=== PATIENT | male | born 1970 | race African-American/Black ===

== ENCOUNTER 2021-02-28 01:28 | Inpatient (IN) | payer OTHER ==
[2021-02-28] MEDS ORDERED: LIDOCAINE 5% TOPICAL PATCH TP ONE (02:36)
[2021-02-28 02:42] VITALS: BMI 32.5
[2021-02-28 03:51] LABS: BASO % 0.6 % (0-2.0); EOS % 4.1 % (0-4.5); HEMATOCRIT 44.4 % (35.4-49); HEMOGLOBIN 14.7 GM/dL (11.7-16.9); LYMPH % 19.1 % (8-40); MCH 27.7 pg (25.7-33.7); MCHC 33.1 g/dl (32.0-35.9); MEAN CELL VOLUME 83.8 fl (80-96); MEAN PLT VOLUME 7.1 fl (7.5-11.1); MONO % 11.1 % (3.8-10.2); NEUT % 65.1 % (42.8-82.8); PLATELET COUNT 186 10^3/uL (134-434); RDW 14.6 % (11.9-15.9); WHITE BLOOD COUNT 4.7 K/mm3 (4.0-10.0)
[2021-02-28 04:11] LABS: CHLORIDE 102 mmol/L (98-107); SODIUM 138 mmol/L (136-145)
[2021-02-28 04:13] LABS: BLOOD UREA NITROGEN 20.7 mg/dL (7-18); CALCIUM 9.2 mg/dL (8.5-10.1)
[2021-02-28 04:14] LABS: ALBUMIN 3.7 g/dl (3.4-5.0); ANION GAP 6 MMOL/L (8-16); CO2 30 mmol/L (21-32); GLUCOSE,RANDOM 101 mg/dL (74-106); MAGNESIUM 2.3 mg/dL (1.8-2.4)
[2021-02-28 04:18] LABS: BILIRUBIN,TOTAL 0.7 mg/dL (0.2-1); CREATININE 1.5 mg/dL (0.55-1.3); SGOT/AST 25 U/L (15-37); SGPT/ALT 46 U/L (13-61); TOT PROT 8.1 g/dl (6.4-8.2)
[2021-02-28 04:19] LABS: ALK PHOS 46 U/L (45-117)
[2021-02-28] MEDS ORDERED: SODIUM CHLORIDE 0.9% 500 ML INFUS.BAG IV ONE (04:26)
[2021-02-28] MEDS ORDERED: DIPHTH,PERTUSS(ACELL),TET 0.5 ML DISP.SYRIN IM ONE ×2 (05:12→05:24)
[2021-02-28] MEDS ORDERED: ACETAMINOPHEN 325 MG TABLET (FP) PO ONE ×2 (05:13→21:11)
[2021-02-28] MEDS ORDERED: ACETAMINOPHEN 325 MG TABLET (FP) ONE (05:24)
[2021-02-28] MEDS ORDERED: SODIUM CHLORIDE 1,000 ML IV SCH (06:00)
[2021-02-28] MEDS ORDERED: HEPARIN NA (PORCINE) 5,000 UNITS/ML 1ML VIAL ONE (06:22)
[2021-02-28] MEDS: HEPARIN NA (PORCINE) 5,000 UNITS/ML 1ML VIAL SQ SCH ×3 (06:55→21:10)
[2021-02-28 09:32] LABS: URINE APPEARANCE CLEAR; URINE BILIRUBIN NEGATIVE (NEGATIVE); URINE COLOR YELLOW; URINE GLUCOSE (UA) NEGATIVE (NEGATIVE); URINE KETONE NEGATIVE (NEGATIVE); URINE LEUK ESTERASE NEGATIVE (NEGATIVE); URINE NITRITE NEGATIVE (NEGATIVE); URINE PROTEIN NEGATIVE (NEGATIVE); URINE UROBILINOGEN 0.2 mg/dL (0.2-1.0)
[2021-02-28 09:59] LABS: URINE BARBITURATES NEGATIVE (NEGATIVE); URINE BENZODIAZEPINES NEGATIVE (NEGATIVE)
[2021-02-28 10:01] LABS: COCAINE, UR NEGATIVE (NEGATIVE); METHADONE, UR NEGATIVE (NEGATIVE)
[2021-02-28 10:02] LABS: PHENCYCLIDINE,URINE NEGATIVE (NEGATIVE)
[2021-02-28 10:10] LABS: OPIATES, URI NEGATIVE (NEGATIVE)
[2021-02-28 10:22] LABS: URINE AMPHETAMINES NEGATIVE (NEGATIVE)
[2021-02-28 10:55] LABS: CHOLESTEROL 165 mg/dL (50-200)
[2021-02-28 10:56] LABS: TRIGLYCERIDES 101 mg/dL (0-150)
[2021-02-28 10:57] LABS: LDL CHOLESTEROL (ONLY SJRH) 97 mg/dL (5-100)
[2021-02-28 10:59] LABS: HDL CHOLESTEROL 47 mg/dL (40-60)
[2021-02-28] MEDS ORDERED: LIDOCAINE PATCH REMOVAL MC ONE (15:00)
[2021-03-01] MEDS: HEPARIN NA (PORCINE) 5,000 UNITS/ML 1ML VIAL SQ SCH (05:27)
[2021-03-01 06:44] VITALS: TEMP 98.2
[2021-03-01 09:49] LABS: CALCIUM 9.2 mg/dL (8.5-10.1)
[2021-03-01 09:51] LABS: BLOOD UREA NITROGEN 19.3 mg/dL (7-18)
[2021-03-01 09:54] LABS: CREATININE 1.4 mg/dL (0.55-1.3)
[2021-03-01 11:30] VITALS: BP 135/79; PULSE 71
== END 2021-03-01 13:45 | disposition home or self-care (01) | DRG 312 ==
LOC: EDBD 01:28 → JER 01:28 → JERBED 04:59 → OBSVTOIN 05:53 → J4S 11:36
PROVIDERS: ADMIT Internal Medicine
DX: R55 Syncope and collapse (principal); N17.9 Acute kidney failure, unspecified; R53.1 Weakness; R73.03 Prediabetes; E66.9 Obesity, unspecified; Z68.32 Body mass index [BMI] 32.0-32.9, adult; W18.39XA Other fall on same level, initial encounter; Y92.098 Other place in other non-institutional residence as the place of occurrence of the external cause
CPT/HCPCS: 36415; 70450-TC; 70551-TC; 71045-TC-FY; 76775-TC; 80048; 80053; 80061; 80307; 81003; 82550; 82553; 82570; 83036; 83735; 83880; 84100; 84436; 84443; 84484; 84540; 85025; 87086; 90715; 93005; 93010; 93880-TC; 97116-GP; 97161-GP; 99285-25; C9803; G0378; J1644; U0003; U0005

== ENCOUNTER 2022-02-10 07:31 | Day surgery (SDC) | payer OTHER ==
[2022-02-10 07:43] VITALS: BMI 27.8
[2022-02-10] MEDS ORDERED: SODIUM CHLORIDE 0.9% 500 ML INFUS.BAG IV ONE (08:34)
[2022-02-10] MEDS ORDERED: morphine CARPU-JECT 2 MG/1 ML DISP.SYRIN IVPUSH ONE (08:34)
[2022-02-10 10:49] LABS: BASO % 0.2 % (0-2.0); HEMATOCRIT 42.6 % (35.4-49); LYMPH % 4.2 % (8-40); MCH 27.5 pg (25.7-33.7); MCHC 32.8 g/dl (32.0-35.9); MEAN CELL VOLUME 83.8 fl (80-96); MEAN PLT VOLUME 7.7 fl (7.5-11.1); MONO % 7.8 % (3.8-10.2); NEUT % 87.8 % (42.8-82.8); PLATELET COUNT 200 10^3/uL (134-434); RBC 5.09 M/mm3 (4.00-5.60); RDW 14.1 % (11.9-15.9); WHITE BLOOD COUNT 11.2 K/mm3 (4.0-10.0)
[2022-02-10 11:08] LABS: ALBUMIN 4.2 g/dl (3.4-5.0); BLOOD UREA NITROGEN 17.3 mg/dL (7-18); CALCIUM 9.4 mg/dL (8.5-10.1)
[2022-02-10 11:12] LABS: CREATININE 1.3 mg/dL (0.55-1.3)
[2022-02-10 11:13] LABS: TOT PROT 8.7 g/dl (6.4-8.2)
[2022-02-10 11:14] LABS: BILIRUBIN,TOTAL 0.8 mg/dL (0.2-1); PH,URINE 5.5 (5.0-8.0); URINE APPEARANCE CLEAR; URINE BILIRUBIN NEGATIVE (NEGATIVE); URINE COLOR YELLOW; URINE GLUCOSE (UA) NEGATIVE (NEGATIVE); URINE KETONE TRACE (NEGATIVE); URINE LEUK ESTERASE NEGATIVE (NEGATIVE); URINE NITRITE NEGATIVE (NEGATIVE); URINE PROTEIN NEGATIVE (NEGATIVE); URINE UROBILINOGEN 0.2 mg/dL (0.2-1.0)
[2022-02-10] MEDS ORDERED: PIPERACILLIN/TAZOB 4.5 GM 4.5 GM in DEXTROSE 5%-WATER 100 ML IVPB ONE (12:38)
[2022-02-10] MEDS ORDERED: PIPERACILLIN/TAZOB 4.5 GM 4.5 GM/100 ML BAG IVPB ONE (13:16)
[2022-02-10] MEDS ORDERED: morphine CARPU-JECT 2 MG/1 ML DISP.SYRIN IVPUSH PRN (13:52)
[2022-02-10] MEDS ORDERED: KETOROLAC TROMETHAMINE 15 MG/ML VIAL IVPUSH PRN ×4 (13:52→18:46)
[2022-02-10] MEDS ORDERED: DEXTROSE 5%-NORMAL SALINE 1,000 ML IV SCH (14:00)
[2022-02-10] MEDS ORDERED: ACETAMINOPHEN 1000 MG/100 ML BAG IVPB PRN ×2 (14:38→14:39)
[2022-02-10 14:56] LABS: INR 1.14 (0.83-1.09); PROTHROMBIN TIME (PATIENT) 13.1 SEC (9.7-13.0)
[2022-02-10 14:59] LABS: ACTIVATED PTT 28.8 SECONDS (25.2-36.5)
[2022-02-10] MEDS ORDERED: GLYCOPYRROLATE 0.2 MG/1 ML VIAL ONE ×3 (16:26→17:35)
[2022-02-10] MEDS ORDERED: MIDAZOLAM HCL 2 MG/2 ML SINGLE DOSE VIAL ONE (16:26)
[2022-02-10] MEDS ORDERED: BUPIVACAINE HCL/PF 0.5% (5MG/ML) 10 ML VIAL ONE (16:44)
[2022-02-10] MEDS ORDERED: PROPOFOL 40 ML ONE (17:12)
[2022-02-10] MEDS ORDERED: ONDANSETRON 4 MG/2 ML VIAL ONE (17:14)
[2022-02-10] MEDS ORDERED: NEOSTIGMINE METHYLSULFATE 0.5 MG/ML - 10 ML MDV ONE ×2 (17:20→17:35)
[2022-02-10] MEDS ORDERED: ONDANSETRON 4 MG/2 ML VIAL IVPUSH PRN ×2 (17:58→18:46)
[2022-02-10] MEDS ORDERED: LACTATED RINGERS SOLUTION 1,000 ML IV SCH (18:00)
[2022-02-10 18:46] VITALS: RESP 18
[2022-02-10] MEDS: ENOXAPARIN NA (PORCINE) 40 MG/0.4 ML DISP.SYRIN SQ SCH (18:52)
[2022-02-10] MEDS ORDERED: ENOXAPARIN NA (PORCINE) 40 MG/0.4 ML DISP.SYRIN SQ ONE (18:52)
[2022-02-10] MEDS: SODIUM CHLORIDE 1,000 ML IV SCH (20:26)
[2022-02-10] MEDS ORDERED: CEFTRIAXONE 1 GM in DEXTROSE 5%-WATER - 50 ML IVPB SCH (22:00)
[2022-02-11] MEDS: SODIUM CHLORIDE 1,000 ML IV SCH (05:50)
[2022-02-11] MEDS: ENOXAPARIN NA (PORCINE) 40 MG/0.4 ML DISP.SYRIN SQ SCH (09:44)
[2022-02-11] MEDS ORDERED: CEFTRIAXONE 1 GM in DEXTROSE 5%-WATER - 50 ML IVPB SCH (10:00)
[2022-02-11 12:04] LABS: HEMATOCRIT 36.1 % (35.4-49); HEMOGLOBIN 11.8 GM/dL (11.7-16.9); LYMPH % 6.4 % (8-40); MCH 27.3 pg (25.7-33.7); MCHC 32.8 g/dl (32.0-35.9); MEAN CELL VOLUME 83.4 fl (80-96); MEAN PLT VOLUME 7.3 fl (7.5-11.1); MONO % 8.2 % (3.8-10.2); NEUT % 85.4 % (42.8-82.8); PLATELET COUNT 166 10^3/uL (134-434); RBC 4.32 M/mm3 (4.00-5.60); RDW 14.2 % (11.9-15.9); WHITE BLOOD COUNT 11.2 K/mm3 (4.0-10.0)
[2022-02-11 12:25] LABS: BLOOD UREA NITROGEN 17.2 mg/dL (7-18); CALCIUM 8.1 mg/dL (8.5-10.1)
[2022-02-11 12:28] LABS: CREATININE 1.3 mg/dL (0.55-1.3)
[2022-02-11 12:32] LABS: BILIRUBIN,TOTAL 0.7 mg/dL (0.2-1); PHOSPHOROUS 3.1 mg/dL (2.5-4.9)
[2022-02-11 12:36] LABS: ALBUMIN 2.9 g/dl (3.4-5.0); TOT PROT 6.4 g/dl (6.4-8.2)
[2022-02-11 14:31] VITALS: BP 102/62; PULSE 65; TEMP 98.9
== END 2022-02-11 17:31 | disposition home or self-care (01) ==
LOC: JASUSAT 07:31 → JER 07:31 → JERBED 12:59 → UNDOADMIN 12:59 → SUATTDRO 14:04 → JASUSAT 14:04 → J6S 20:10 → JASUSAT 02-11 17:31
PROVIDERS: ATTEND Internal Medicine
PROC: 0DTJ4ZZ Resection of Appendix, Percutaneous Endoscopic Approach (ICD-10-PCS; principal; 2022-02-10 16:00)
DX: K35.80 Unspecified acute appendicitis (principal)
CPT/HCPCS: 0241U-QW; 36415; 71046-TC-FY; 74019-TC-FY; 74177-TC; 80053; 81003; 83690; 83735; 84100; 85025; 85610; 85730; 86850; 86900; 86901; 88304-TC; 93005; 93010; 94760; 99285-25; Q9967

== ENCOUNTER 2023-04-27 00:48 | Emergency (ER) | payer OTHER ==
[2023-04-27 00:55] VITALS: BP 147/100; PULSE 81; RESP 18; TEMP 98.5; BMI 29.5
[2023-04-27] MEDS ORDERED: DEXAMETHASONE SOD PHOSPHATE 10 MG/1 ML VIAL IM ONE (03:28)
[2023-04-27] MEDS ORDERED: KETOROLAC TROMETHAMINE 30 MG/1 ML VIAL IM ONE (03:28)
[2023-04-27] MEDS ORDERED: KETOROLAC TROMETHAMINE 30 MG/1 ML VIAL ONE (03:30)
[2023-04-27] MEDS ORDERED: DEXAMETHASONE SOD PHOSPHATE 10 MG/1 ML VIAL ONE (03:31)
== END 2023-04-27 04:45 | disposition home or self-care (01) ==
LOC: JER 00:48
PROC: 3E023NZ Introduction of Analgesics, Hypnotics, Sedatives into Muscle, Percutaneous Approach (ICD-10-PCS; principal; 2023-04-27)
PROC: 3E0233Z Introduction of Anti-inflammatory into Muscle, Percutaneous Approach (ICD-10-PCS; 2023-04-27)
DX: K08.89 Other specified disorders of teeth and supporting structures (principal)
CPT/HCPCS: 99284-25; J1100